=== PATIENT | male | born 1950 | race Caucasian/White ===

== ENCOUNTER 2018-07-17 17:06 | Inpatient (IN) | payer OTHER | END 2018-07-21 13:31 | disposition home or self-care (01) | LOC: EDH 17:06 → 4AH 07-18 01:10 → EDHIP 20:50 | DX: J44.1 Chronic obstructive pulmonary disease with (acute) exacerbation (principal); E66.2 Morbid (severe) obesity with alveolar hypoventilation; Z68.41 Body mass index [BMI] 40.0-44.9, adult; E87.3 Alkalosis; I10 Essential (primary) hypertension; E11.65 Type 2 diabetes mellitus with hyperglycemia ==